=== PATIENT | female | born 1970 | race Caucasian/White ===

== ENCOUNTER → 2017-04-09 | Outpatient (CLI) | payer BC ==
--- NOTE | 2017-04-12 07:05 | US ---
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 Pt states palpable lump left anterior neck GLAND SIZE: Right Lobe: 5.3 x 2.1 x 1.9 cm Overall Parenchyma: heterogenous Left Lobe: 6.4 x 1.9 x 2.0 cm Overall Parenchyma: heterogeneous Isthmus Thickness: 0.5 cm Bilateral neck scanned, no evidence of lymphadenopathy. Heterogeneous enlarged thyroid redemonstrated without discrete nodule. IMPRESSION: Enlarged heterogeneous thyroid redemonstrated without suspicious nodule. No significant change from p rior.
== END | disposition home or self-care (01) ==
LOC: RADUSWWP 15:55
PROVIDERS: ATTEND Family Medicine
DX: E04.9 Nontoxic goiter, unspecified (principal)
CPT/HCPCS: 76536